=== PATIENT | male | born 1945 | race Caucasian/White ===

== ENCOUNTER 2019-01-13 11:06 | Inpatient (IN) | payer OTHER ==
[~2019-01-13] VITALS: Ht 180.3 cm; Wt 80.7 kg
--- NOTE | ~2019-01-13 | CN ---
PATIENT NAME:KRISTY BONNER MEDICAL RECORD: [id number] : 43 LOCATION:D.MS [place] ADMIT DATE: 01/13/19 ACCOUNT: [id number] CONSULTING PHYSICIAN: DORIS AVILES MD REFERRING PHYSICIAN: ASHLEY MOSES MD DATE OF CONSULTATION: 01/14/2019 Internal Medicine Consultation CONSULT REQUESTING PHYSICIAN: Ashley Moses MD REASON FOR CONSULTATION: Acute exacerbation of COPD, congestive heart failure. HISTORY OF PRESENT ILLNESS: Mr. Bonner is a 73-year-old very pleasant gentleman who has a history of COPD and congestive heart failure. The patient was sick for the last 3-4 days. He is congested. He is wheezing. He is coughing. The cough is productive of white color sputum production. He has shortness of breath and mild exertion. He was given amoxicillin 3 days ago, but the patient was not getting any better. REVIEW OF SYSTEMS: As in history of present illness. PAST MEDICAL HISTORY: 1. COPD. 2. Congestive heart failure with an EF of 20%. 3. History of coronary artery disease status post CABG. 4. History of CA prostate. ALLERGIES: HE IS ALLERGIC TO ALPRAZOLAM. MEDICATIONS: He is on Lasix, carvedilol, and spironolactone. FAMILY HISTORY: Significant for hypertension. PERSONAL AND SOCIAL HISTORY: The patient is an ex-smoker. He is a nondrinker. PHYSICAL EXAMINATION: GENERAL: Now, the patient is lying comfortably. He is not in acute distress. VITAL SIGNS: The blood pressure 111/63, pulse is 70, respirations 20, temperature 98.4, SpO2 is 98% on 2 liters nasal cannula. HEENT: Conjunctivae are pink. Sclerae are not icteric. NECK: Supple, no JVD. CHEST: The chest excursion minimal on both sides. There is prolonged expiration with wheezing. There is wheeze. There are basal crackles. HEART: Rhythm regular, normal sound, with a grade II/ systolic murmur. ABDOMEN: Soft, bowel sounds present. No hepatosplenomegaly. RECTAL: Deferred. EXTREMITIES: No cyanosis, no clubbing, no pedal edema. CENTRAL NERVOUS SYSTEM: The patient is awake and alert. There are no obvious cranial nerve abnormality. The gait was not tested. CHEST RADIOGRAPH: There is no acute cardiopulmonary process. OTHER LABORATORY DATA: CBC: WBC 5.1, hemoglobin 16.1, hematocrit 45.2, the platelet count 162. Chemistry: Sodium is 134, potassium is 4.3, BUN is 22, CONSULT REPORT [id number] KRISTY BONNER creatinine 1.2. ABG: The pH is 7.45, pCO2 is 32.3, the pO2 is 78. IMPRESSION: 1. Acute exacerbation of chronic obstructive pulmonary disease. 2. Acute hypoxic respiratory failure. 3. Tracheobronchitis. 4. Congestive heart failure with chronic systolic dysfunction, acute flareup. 5. Coronary artery disease status post coronary artery bypass grafting. 6. Hypertension. RECOMMENDATIONS: 1. Discontinue albuterol/ipratropium nebulizer. Start on Xopenex and ipratropium nebulizer. 2. Brovana-budesonide nebulizer. 3. Methylprednisolone IV. 4. IV Lasix. 5. Supplemental oxygen. 6. Singulair. 7. Tessalon Perles. Follow up labs and chest radiograph. The patient will need outpatient workup. Dr. Moses, thank you for involving me in the care of Mr. Bonner. TRANSINT:[id number] Voice Confirmation ID: [id number] DOCUMENT ID: [id number] DORIS AVILES MD CC: [id number] DICTATION DATE: 01/14/19 162 SENIOR SOLUTIONS ARCHITECT: 01/14/19 2334 ADM IN [place] [address] [place] [address]
[2019-01-13] MEDS ORDERED: LASIX40 MG PO (11:32)
[2019-01-13] MEDS ORDERED: COREG6.25 MG PO (11:32)
[2019-01-13] MEDS ORDERED: ALDACTONE25 MG PO (11:34)
[2019-01-13] MEDS ORDERED: POLY HIST FORTE (11:36)
[2019-01-13] MEDS ORDERED: CLAVULANATE (11:38)
[2019-01-13] MEDS ORDERED: AMOXICILLIN (11:38)
[2019-01-13 12:18] LABS: BASOPHILS 0.6 % (0-2); EOSINOPHILS 3.4 % (0-7); HEMATOCRIT 45.2 % (42.0-54.0); HEMOGLOBIN 16.1 g/dL (13.5-17.5); IMMATURE GRANULOCYTES 0.6 % (0-5); LYMPHOCYTES 26.4 % (15-50); MCH 34.8 pg (26.0-34.0); MCHC 35.6 g/dL (31.0-37.0); MCV 97.8 fL (80.0-100.0); MEAN PLATELET VOLUME 10.6 fL (7.4-10.4); MONOCYTES 14.2 % (2-11); NEUTROPHILS 54.8 % (40-80); PLATELET COUNT 162 10x3/uL (130-400); RBC 4.62 10x6/uL (4.20-6.10); RDW 12.7 % (11.5-14.5); WBC 5.1 10x3/uL (4.8-10.8)
[2019-01-13 12:29] LABS: APTT 29.7 SECONDS (22.8-39.4); INR 0.91 (0.85-1.17); PROTIME 11.8 SECONDS (11.6-15.0)
[2019-01-13 12:31] LABS: ALBUMIN 3.8 g/dL (3.4-5.0); ALKALINE PHOSPHATASE 109 U/L (46-116); ALT (SGPT) 13 U/L (10-68); BILIRUBIN - TOTAL 1.35 mg/dL (0.2-1.3); CALC OSMOLALITY 271 mosm/kg (275-300); CARBON DIOXIDE 29.5 mmol/L (21.0-32.0); CHLORIDE - SERUM 98 mmol/L (98-107); CREATININE - SERUM 1.3 mg/dL (0.6-1.3); GLUCOSE 108 mg/dL (74-106); POTASSIUM - SERUM 4.3 mmol/L (3.5-5.1); PROTEIN - SERUM 7.7 g/dL (6.4-8.2); SODIUM 135 mmol/L (136-145); UREA NITROGEN 15 mg/dL (7-18); eGFR NON AFRICAN AMERICAN 57 mL/min (90-120)
[2019-01-13 12:44] LABS: CKMB 2.1 U/L (0.0-3.6); CREATINE KINASE 167 UL (21-232); PRO BNP 3414 pg/mL (0-125); TROPONIN-I 0.024 ng/mL (0.000-0.060)
[2019-01-13 13:47] VITALS: BP 104/75
--- NOTE | 2019-01-13 18:28 | NUR ---
RECIEVED VIA WHEELCHAIR FROM ER, AAOX4, IV TO RIGHT FOREARM NS AT 50ML/HR. ON ROOM AIR, AMBULATORY, PROVIDED SPUTUM CULTURE COLLECTION TUBE AND INCENTIVE SPIROMETER, DEMONSTRATED PROPER USE OF IC AND VERBALIZES UNDERSTANDING OF SPUTUM CULTURE. DENIES ANY CURRENT NEEDS OR DISCOMFORTS, BED LOWERED AND LOCKED, CALL LIGHT WITHIN REACH. CPOC
--- NOTE | 2019-01-13 19:05 | NUR ---
BED LOW WITH SRX2 AND CALL LIGHT IN REACH...LUNGS WITH SOME CRACKLES THROUGHOUT STRUGGLING SLIGHTLYT WITH RESP AT 24 O2 AT 2L APPLIED PER ORDER AT THIS TIME....SKIN WARM AND DRY DENIES PAIN.
[2019-01-13 19:54] VITALS: BP 135/93
[2019-01-14 00:13] VITALS: BP 107/59
[2019-01-14 01:04] VITALS: BMI 24.8
[2019-01-14 05:37] VITALS: BP 124/62
[2019-01-14 05:43] LABS: BASOPHILS 0.3 % (0-2); EOSINOPHILS 0.3 % (0-7); HEMATOCRIT 40.7 % (42.0-54.0); HEMOGLOBIN 14.3 g/dL (13.5-17.5); IMMATURE GRANULOCYTES 0.5 % (0-5); LYMPHOCYTES 18.3 % (15-50); MCHC 35.1 g/dL (31.0-37.0); MCV 96.9 fL (80.0-100.0); MEAN PLATELET VOLUME 10.5 fL (7.4-10.4); MONOCYTES 3.8 % (2-11); NEUTROPHILS 76.8 % (40-80); RDW 12.4 % (11.5-14.5); WBC 3.9 10x3/uL (4.8-10.8)
[2019-01-14 06:05] LABS: ALBUMIN 3.2 g/dL (3.4-5.0); ANION GAP 16.6 mmol/L (8-16); BILIRUBIN - TOTAL 0.92 mg/dL (0.2-1.3); CALCIUM 8.2 mg/dL (8.5-10.1); CARBON DIOXIDE 22.7 mmol/L (21.0-32.0); CREATININE - SERUM 1.2 mg/dL (0.6-1.3); POTASSIUM - SERUM 4.3 mmol/L (3.5-5.1); PROTEIN - SERUM 6.8 g/dL (6.4-8.2)
[2019-01-14 06:06] LABS: PLATELET COUNT 125 10x3/uL (130-400)
--- NOTE | 2019-01-14 08:18 | NUR ---
PT ALERT X 4. EXPIRATORY WHEEZES TO LEFT LOBE, 2L O2 PER NC. TELEMETRY IN PLACE. IV TO RIGHT FOREARM, PATENT, DRESSING CLEAN DRY AND INTACT. SCD'S IN PLACE. BED LOW, CALL LIGHT IN REACH NO OTHER NEEDS AT THIS TIME.
[2019-01-14 09:57] VITALS: BP 155/85
[2019-01-14 12:47] VITALS: BP 123/61
[2019-01-14 18:14] VITALS: BP 116/71
[2019-01-14 21:18] VITALS: BP 94/49
[2019-01-15 00:48] VITALS: BP 101/59
[2019-01-15 04:50] VITALS: BP 121/56
[2019-01-15 05:26] LABS: BASOPHILS 0 % (0-2); EOSINOPHILS 0 % (0-7); HEMATOCRIT 35.1 % (42.0-54.0); HEMOGLOBIN 12.1 g/dL (13.5-17.5); IMMATURE GRANULOCYTES 0.2 % (0-5); LYMPHOCYTES 8.8 % (15-50); MCH 33.3 pg (26.0-34.0); MCHC 34.5 g/dL (31.0-37.0); MCV 96.7 fL (80.0-100.0); MEAN PLATELET VOLUME 10.4 fL (7.4-10.4); MONOCYTES 3.4 % (2-11); NEUTROPHILS 87.6 % (40-80); PLATELET COUNT 132 10x3/uL (130-400); RBC 3.63 10x6/uL (4.20-6.10); RDW 12.3 % (11.5-14.5)
[2019-01-15 05:36] LABS: WBC 9.1 10x3/uL (4.8-10.8)
[2019-01-15 05:43] LABS: ALBUMIN 3.2 g/dL (3.4-5.0); ANION GAP 12.4 mmol/L (8-16); BILIRUBIN - TOTAL 0.5 mg/dL (0.2-1.3); CALCIUM 8.8 mg/dL (8.5-10.1); CARBON DIOXIDE 27.1 mmol/L (21.0-32.0); CREATININE - SERUM 1.2 mg/dL (0.6-1.3); POTASSIUM - SERUM 4.5 mmol/L (3.5-5.1); PROTEIN - SERUM 6.5 g/dL (6.4-8.2)
--- NOTE | 2019-01-15 08:02 | NUR ---
PT ALERT X 4. INSPIRATORY AND EXPIRATORY WHEEZES TO ALL MARTINEZ, 2L O2 PER NC. TELEMETRY IN PLACE. IV TO RIGHT WRIST, SALINE LOCKED. HEADACHE NOW, RATING PAIN OF 8/10, WILL MONITOR. BED LOW, CALL LIGHT IN REACH. NO OTHER NEEDS AT THIS TIME.
[2019-01-15 09:45] VITALS: BP 120/62
[2019-01-15 13:24] VITALS: BP 115/65
[2019-01-15 18:08] VITALS: BP 114/61
--- NOTE | 2019-01-15 19:35 | NUR ---
PATIENT RESTING IN BED WITH NO S/S OF DISTRESS AND GUEST AT BEDSIDE. PATIENT DENIES NEEDS AT THIS TIME. BED IN LOWEST POSITION AND CALL LIGHT WITHIN REACH. ENCOURAGED THE PATIENT TO CALL IF HE HAS NEEDS. WILL CONTINUE TO MONITOR.
[2019-01-15 20:00] VITALS: BP 126/68
[2019-01-16] VITALS: BP 128/75
--- NOTE | 2019-01-16 02:13 | EC ---
PATIENT:KRISTY AGUILAR DATE OF SERVICE: 01/13/19 SEX: M MEDICAL RECORD: [id number] DATE OF : [birth year] LOCATION:D.MS [place] AGE OF PATIENT: 73 ADMISSION DATE: 01/13/19 REFERRING PHYSICIAN: INTERPRETING PHYSICIAN: GINGER MUHAMMAD MD ECHOCARDIOGRAM REPORT ECHO CHARGES 4 ECHO COMPLETE Date: 01/14/19 CLINICAL DIAGNOSIS: DYSPNEA ECHOCARDIOGRAPHIC MEASUREMENTS (adult normal given) AC root (d.<3.7cm) 3.2 cm LV Septum d (<1.2 cm> 0.9 cm Valve Excursion 1.8 cm LV Septum (systole) 1.1 cm Left Atria (s.<4.0cm> 3.3 cm LVPW d(<1.2cm) 1.8 cm RV (d.<2.3cm) 2.2 cm LVPW (sytole) 2.1 cm LV diastole(<5.6CM) 5.7 cm MV E-F(>70mm/sec) cm LV systole 4.6 cm LVOT Diameter 2.0 cm MV exc.(>10mm) cm Est.ejection fraction (50-75%) % DOPPLER: LVIT cm/sec A 101 cm/sec E 42 cm/sec LA cm/sec RVSP 23.0 mmHg LVOT 89 cm/sec AOP1/2T m/s Asc. Ao 99 cm/sec RVOT 103 cm/sec RA cm/sec PA 103 cm/sec AV Gradient Peak 3.9 mmHg AV Mean 1.7 mmHg AV Area 3.1 cm MV Gradient Peak 5.4 mmHg MV Mean 1.9 mmHg MV Area cm COMMENTS: Wardrobe Attendant: [facility] Tire Inspector: 3 Dr. Burleson TAPE# PACS Pericardial Effusion N DATE OF SERVICE: Adequate 2-D, color-flow and spectral Doppler, and M-mode. No LVH. LV internal dimensions are normal. LV is globally hypokinetic with reduced EF. Estimated EF is 20% to 25%. Aortic valve sclerosis without stenosis by Doppler interrogation. Left atrium is normal at 3.3 cm. Mitral valve shows no prolapse. Mild MR. Right-sided chambers are grossly normal. Trace TR. ECHOCARDIOGRAM REPORT [id number] KRISTY AGUILAR TRANSINT:[id number] Voice Confirmation ID: [id number] DOCUMENT ID: [id number] GINGER MUHAMMAD MD at 0213 CC: [id number] DICTATION DATE: 01/15/19 1330 ACADEMIC AFFAIRS COORDINATOR: 01/15/19 1414 ADM IN [place] [id number] [place] [id number]
[2019-01-16 03:00] VITALS: BP 131/70
[2019-01-16 06:15] LABS: BASOPHILS 0.1 % (0-2); EOSINOPHILS 0 % (0-7); HEMATOCRIT 39.8 % (42.0-54.0); HEMOGLOBIN 13.8 g/dL (13.5-17.5); IMMATURE GRANULOCYTES 0.4 % (0-5); LYMPHOCYTES 6.5 % (15-50); MCHC 34.7 g/dL (31.0-37.0); MEAN PLATELET VOLUME 10.4 fL (7.4-10.4); MONOCYTES 2.7 % (2-11); NEUTROPHILS 90.3 % (40-80); RBC 4.06 10x6/uL (4.20-6.10); RDW 12.8 % (11.5-14.5)
[2019-01-16 06:25] LABS: PLATELET COUNT 168 10x3/uL (130-400); WBC 11.7 10x3/uL (4.8-10.8)
[2019-01-16 06:46] LABS: ALBUMIN 3.7 g/dL (3.4-5.0); ANION GAP 17.4 mmol/L (8-16); BILIRUBIN - TOTAL 0.48 mg/dL (0.2-1.3); CALCIUM 8.8 mg/dL (8.5-10.1); CARBON DIOXIDE 27.6 mmol/L (21.0-32.0); CREATININE - SERUM 1.1 mg/dL (0.6-1.3); PROTEIN - SERUM 6.9 g/dL (6.4-8.2)
--- NOTE | 2019-01-16 07:25 | NUR ---
PT UP AD KALI, WALKING AROUND NURSES STATION. PT ALERT AND ORIENTED. PT ON ELECTROLYTE PROTOCOL. SCDS PRESENT. IV TO RIGHT FOREARM, SL. SITE PATENT WITHOUT REDNESS OR SWELLING. INSPIRATORY AND EXPIRATORY WHEEZES AUSCULTATED BILATERAL UPPER LOBES, EXCEPT DIMINISHED LUNG SOUNDS IN LLL. PT ON TELEMETRY 76 SR. NO C/O PAIN. NO S/S OF ACUTE DISTRESS NOTED. CALL LIGHT IN REACH. WILL CONTINUE TO MONITOR.
[2019-01-16 08:00] VITALS: BP 134/71
--- NOTE | 2019-01-16 10:47 | NUR ---
I have reviewed this patient and I concur with the Shift Assessment completed by the Licensed Practical Nurse today this shift.
[2019-01-16 12:00] VITALS: BP 120/62
[2019-01-16 17:00] VITALS: BP 120/67
--- NOTE | 2019-01-16 17:50 | NUR ---
PT RESTING IN BED, WATCHING TV. NO C/O PAIN. NO S/S OF ACUTE DISTRESS NOTED. PT DENIES ANYTHING FURTHER AT THIS TIME. CALL LIGHT IN REACH. WILL CONTINUE TO MONITOR.
[2019-01-16 21:16] VITALS: BP 113/55
--- NOTE | 2019-01-17 00:36 | NUR ---
REC'D AT SHIFT CHGE AMB. IN HALLWAY WITHOUT DIFFICULTY.DENIES ANY DISCOMFORT. WILL CONTINUE TO TO MONITOR FOR ANY CHGES AND FOLLOW CURRENT PLAN OF CARE.
[2019-01-17 01:16] VITALS: BP 124/60
--- NOTE | 2019-01-17 04:00 | NUR ---
I have reviewed this patient and I concur with the Shift Assessment completed by the Licensed Practical Nurse today this shift.
[2019-01-17 05:12] VITALS: BP 120/54
[2019-01-17 05:51] LABS: BASOPHILS 0.1 % (0-2); EOSINOPHILS 0 % (0-7); HEMATOCRIT 37.6 % (42.0-54.0); HEMOGLOBIN 12.8 g/dL (13.5-17.5); IMMATURE GRANULOCYTES 1.2 % (0-5); LYMPHOCYTES 14.3 % (15-50); MCH 33.8 pg (26.0-34.0); MCV 99.2 fL (80.0-100.0); MEAN PLATELET VOLUME 10.5 fL (7.4-10.4); NEUTROPHILS 74.4 % (40-80); PLATELET COUNT 157 10x3/uL (130-400); RBC 3.79 10x6/uL (4.20-6.10); RDW 12.7 % (11.5-14.5); WBC 10.6 10x3/uL (4.8-10.8)
[2019-01-17 06:31] LABS: ALBUMIN 3.1 g/dL (3.4-5.0); ANION GAP 12.3 mmol/L (8-16); BILIRUBIN - TOTAL 0.37 mg/dL (0.2-1.3); CALCIUM 8.5 mg/dL (8.5-10.1); CARBON DIOXIDE 29.1 mmol/L (21.0-32.0); CREATININE - SERUM 1.2 mg/dL (0.6-1.3); POTASSIUM - SERUM 3.4 mmol/L (3.5-5.1); PROTEIN - SERUM 6.4 g/dL (6.4-8.2)
--- NOTE | 2019-01-17 08:00 | NUR ---
PT ALERT X 4. INSPIRATORY AND EXPIRATORY WHEEZES TO ALL MARTINEZ. TELEMETRY IN PLACE. IV TO RIGHT WRIST, SALINE LOCKED. BED LOW, CALL LIGHT IN REACH, NO OTHER NEEDS AT THIS TIME.
[2019-01-17 09:38] VITALS: BP 118/90
[2019-01-17 14:22] VITALS: BP 148/85
--- NOTE | 2019-01-17 14:42 | MORECARE ---
CASE MANAGEMENT DISCHARGE SUMMARY PATIENT: KRISTY AGUILAR UNIT: [id number] ADM DATE: 01/13/19 AGE: 73 : 43 SEX: M ROOM/BED: D.2203 AUTHOR: VICKIEDOC PHYSICIAN: REFERRING PHYSICIAN: ASHLEY MOSES MD DATE OF SERVICE: 01/17/19 Discharge Plan Patient Name: KRISTY AGUILAR Facility: [facility]:[place] : 1945 Planned Disposition: Home Anticipated Discharge Date: Discharge Date: Expected LOS: Initial Reviewer: [email or web address] Initial Review Date: 01/13/2019 Generated: 01/17/19 3:42 pm Comments DCP- Discharge Planning Updated by [id number]: Krystina Romero on 01/17/19 1:[address] Patient Name: KRISTY AGUILAR Admission Status: ER Accout number: [id number] Admission Date: 01-13-2019 : 1945 Admission Diagnosis: Attending: ASHLEY MOSES Current LOS: 4 Anticipated DC Date: Planned Disposition: Home Primary Insurance: [employer] GOLD CHOICE PFFS Discharge Planning Comments: CM met with patient to complete initial dc planning assessment. CM educated patient on the CM role and verbal consent given by patient to complete assessment. Patient lives at home with where he is independent with his care. At discharge patient plans to return home and feels this is a safe discharge. CM discussed availability of home health, rehab services, and medical equipment. Patient has a walker at home ( that he does not use) home O2 that he uses at night ([employer]) and a cane. Patient denied known discharge needs at this time. If he needs a nebulizer when he is discharged he would like to use [facility] (his uses them ) IMM served and explained. ANIL for [facility] signed and placed in chart. CM will continue to follow and will assist as needed with dc plans/needs. Photogravure Press Operator: Krystina Romero DCPIA - Discharge Planning Initial Assessment Updated by [email or web address]: Krystina Romero on 01/17/19 2:36 pm * Is the patient Alert and Oriented? Yes * How many steps to enter\exit or inside your home? * PCP DEBBIE * Pharmacy [facility] [place] * Preadmission Environment Home with Family * ADLs Independent * Equipment Oxygen Walker * List name and contact numbers for known caregivers / representatives who currently or will assist patient after discharge: SHASHI SIMONS () [phone] * Verbal permission to speak to the caregivers and representatives has been obtained from the patient. Yes * Community resources currently utilized None * Additional services required to return to the preadmission environment? No * Can the patient safely return to the preadmission environment? Yes * Has this patient been hospitalized within the prior 30 days at any hospital? No Coverage Notice Reviewer: [id number] Michael Romero Notice Issued Date-Time: 01/17/2019 14:10 Notice Type: IM Discharge Notice Notice Delivered To: Patient Relationship to Patient: Senior Bioinformatics Scientist Name: Delivery Method: HAND - Hand Delivered Nirmala Days: Prior Verbal Notification: Recipient Understood Notice: Yes Recipient Signature: Yes Med Rec Note Co-signed by Attending: Coverage Notice Comment: Patient Name: KRISTY AGUILAR Page [phone] at 1442 All edits/amendments must be made on the electronic document DICTATION DATE: 01/17/19 1442 MEDICAL SUPPLY TECHNICIAN: SNEHA 01/17/19 1442 RPT#: [id number] DC DATE: STATUS: ADM IN [facility] [address] [place] [address] END OF REPORT
[2019-01-17 16:46] VITALS: BP 129/81
[2019-01-17 20:54] VITALS: BP 131/69
--- NOTE | 2019-01-17 23:27 | NUR ---
REC'D AT SHIFT CHGE.UP IN SHOWER.KAELYN, WELL. DENIES ANY COMPLAINTS OR DISCOMFORT AT PRESENT TIME WILL CONTINUE TO MONITOR FOR ANY CHGES AND FOLLOW CURRENT PLAN OF CARE
--- NOTE | 2019-01-18 01:53 | NUR ---
I have reviewed this patient and I concur with the Shift Assessment completed by the Licensed Practical Nurse today this shift.
[2019-01-18 05:01] VITALS: BP 110/64
[2019-01-18 06:39] LABS: BASOPHILS 0.1 % (0-2); EOSINOPHILS 0 % (0-7); HEMATOCRIT 38.8 % (42.0-54.0); HEMOGLOBIN 13.1 g/dL (13.5-17.5); LYMPHOCYTES 19.4 % (15-50); MCH 33.3 pg (26.0-34.0); MCHC 33.8 g/dL (31.0-37.0); MCV 98.7 fL (80.0-100.0); MEAN PLATELET VOLUME 10.4 fL (7.4-10.4); MONOCYTES 11.2 % (2-11); NEUTROPHILS 67.3 % (40-80); PLATELET COUNT 182 10x3/uL (130-400); RBC 3.93 10x6/uL (4.20-6.10); RDW 12.5 % (11.5-14.5); WBC 9.9 10x3/uL (4.8-10.8)
[2019-01-18 06:50] LABS: ALBUMIN 3.1 g/dL (3.4-5.0); BILIRUBIN - TOTAL 0.54 mg/dL (0.2-1.3); CALCIUM 8.4 mg/dL (8.5-10.1); CARBON DIOXIDE 30.7 mmol/L (21.0-32.0); CREATININE - SERUM 1.1 mg/dL (0.6-1.3); PROTEIN - SERUM 6.5 g/dL (6.4-8.2)
[2019-01-18 06:58] LABS: POTASSIUM - SERUM 3.7 mmol/L (3.5-5.1)
--- NOTE | 2019-01-18 07:43 | NUR ---
PT UP WALKING AROUND ROOM. RESP CAME IN TO WORK WITH PT AND DO FLUTTER TEACHING. NO S/S OF ACUTE DISTRESS. CL IN PLACE.
[2019-01-18 08:30] VITALS: BP 129/69
[2019-01-18 10:41] VITALS: Ht 180.3 cm; Wt 80.7 kg
--- NOTE | 2019-01-18 12:27 | NUR ---
SPOKE WITH PREMA FELICIANO ABOUT PT CONCERNA ABOUT HARDENED AREA IN PELVIC AREA. NO S/S OF ACUTE DISTRESS. CL IN PLACE.
[2019-01-18 13:03] VITALS: BP 116/61
[2019-01-18 14:45] VITALS: BP 125/72
--- NOTE | 2019-01-18 19:23 | NUR ---
PT RESTING IN BED TALKING ON PHONE. NO S/S OF ACUTE DISTRESS. CL IN PLACE.
[2019-01-18 20:10] VITALS: BP 98/47
--- NOTE | 2019-01-19 00:04 | NUR ---
REC'D. CHGE OF SHIFT.SITTING ON SIDE OF BED. DENIES ANY COMPLAINTS OR DISCOMFORT AT PRESENT TIME.'STATES GOING FOR A WALK IN A FEW MINUTES WILL CONTINUE TO MONITOR FOR ANY CHGES. AND FOLLOW CURRENT PLAN OF CARE.
--- NOTE | 2019-01-19 01:59 | NUR ---
I have reviewed this patient and I concur with the Shift Assessment completed by the Licensed Practical Nurse today this shift.
[2019-01-19 04:14] LABS: BASOPHILS 0.2 % (0-2); EOSINOPHILS 0.2 % (0-7); HEMATOCRIT 36.9 % (42.0-54.0); IMMATURE GRANULOCYTES 6.9 % (0-5); LYMPHOCYTES 23.2 % (15-50); MCH 34.2 pg (26.0-34.0); MCHC 35.2 g/dL (31.0-37.0); MCV 97.1 fL (80.0-100.0); MEAN PLATELET VOLUME 10.1 fL (7.4-10.4); MONOCYTES 7.7 % (2-11); NEUTROPHILS 61.8 % (40-80); PLATELET COUNT 169 10x3/uL (130-400); RDW 12.3 % (11.5-14.5); WBC 8.8 10x3/uL (4.8-10.8)
[2019-01-19 04:27] LABS: ANION GAP 10.7 mmol/L (8-16); CALCIUM 8.3 mg/dL (8.5-10.1); CARBON DIOXIDE 30.4 mmol/L (21.0-32.0); CREATININE - SERUM 1.1 mg/dL (0.6-1.3); POTASSIUM - SERUM 4.1 mmol/L (3.5-5.1)
[2019-01-19 04:45] VITALS: BP 99/64
--- NOTE | 2019-01-19 07:46 | NUR ---
AAOX4. SITTING UP IN BED. NO S/S OF ACUTE DISTRESS. CL IN PLACE.
[2019-01-19 09:23] VITALS: BP 134/73
[2019-01-19] MEDS ORDERED: ZITHROMAX250 MG PO (09:42)
[2019-01-19] MEDS ORDERED: SINGULAIR10 MG PO (09:43)
[2019-01-19] MEDS ORDERED: FLORAJEN3 CAPS460 MG PO (09:43)
[2019-01-19] MEDS ORDERED: MUCINEX600 MG PO (09:43)
[2019-01-19] MEDS ORDERED: TESSALON PERLE100 MG PO (09:43)
[2019-01-19] MEDS ORDERED: PREDNISONE10 MG PO (09:46)
[2019-01-19] MEDS ORDERED: OMNICEF300 MG PO (09:47)
--- NOTE | 2019-01-19 11:02 | MORECARE ---
CASE MANAGEMENT DISCHARGE SUMMARY PATIENT: KRISTY AGUILAR UNIT: [id number] ADM DATE: 01/13/19 AGE: 73 : 43 SEX: M ROOM/BED: D.2203 AUTHOR: АННА JOHNSTON PHYSICIAN: REFERRING PHYSICIAN: ASHLEY MOSES MD DATE OF SERVICE: 01/19/19 Discharge Plan Patient Name: KRISTY AGUILAR Facility: [facility]:[place] : 1945 Planned Disposition: Home Anticipated Discharge Date: Discharge Date: Expected LOS: Initial Reviewer: [email or web address] Initial Review Date: 01/13/2019 Generated: 01/19/19 12:02 pm Comments DCP- Discharge Planning Updated by [id number]: Krystina Romero on 01/19/19 10:[address] Patient Name: KRISTY AGUILAR Encounter No: [id number] : 1945 Primary Insurance: [employer] GOLD CHOICE PFFS Anticipated DC Date: Planned Disposition: Home External Planned Provider: : DCP follow-up note: Patient and family in agreement with discharge plan. No changes to plan. Case management will follow and assist as needed. Krystina Romero DCP- Discharge Planning Updated by [id number]: Krystina Romero on 01/17/19 1:[address] Patient Name: KRISTY AGUILAR Admission Status: ER Accout number: [id number] Admission Date: 01-13-2019 : 1945 Admission Diagnosis: Attending: ASHLEY MOSES Current LOS: 4 Anticipated DC Date: Planned Disposition: Home Primary Insurance: [employer] GOLD CHOICE PFFS Discharge Planning Comments: CM met with patient to complete initial dc planning assessment. CM educated patient on the CM role and verbal consent given by patient to complete assessment. Patient lives at home with where he is independent with his care. At discharge patient plans to return home and feels this is a safe discharge. CM discussed availability of home health, rehab services, and medical equipment. Patient has a walker at home ( that he does not use) home O2 that he uses at night ([employer]) and a cane. Patient denied known discharge needs at this time. If he needs a nebulizer when he is discharged he would like to use [facility] (his uses them ) IMM served and explained. ANIL for [facility] signed and placed in chart. CM will continue to follow and will assist as needed with dc plans/needs. Dry Cleaning Counter Clerk: Krystina Romero DCPIA - Discharge Planning Initial Assessment Updated by [email or web address]: Krystina Romero on 01/17/19 2:36 pm * Is the patient Alert and Oriented? Yes * How many steps to enter\exit or inside your home? * PCP DEBBIE * Pharmacy [facility] * Preadmission Environment Home with Family * ADLs Independent * Equipment Oxygen Walker * List name and contact numbers for known caregivers / representatives who currently or will assist patient after discharge: SHASHI SIMONS () [phone] * Verbal permission to speak to the caregivers and representatives has been obtained from the patient. Yes * Community resources currently utilized None * Additional services required to return to the preadmission environment? No * Can the patient safely return to the preadmission environment? Yes * Has this patient been hospitalized within the prior 30 days at any hospital? No Coverage Notice Reviewer: [id number] - Krystina Romero Notice Issued Date-Time: 01/17/2019 14:10 Notice Type: IM Discharge Notice Notice Delivered To: Patient Relationship to Patient: Machine Trimmer Name: Delivery Method: HAND - Hand Delivered Nirmala Days: Prior Verbal Notification: Recipient Understood Notice: Yes Recipient Signature: Yes Med Rec Note Co-signed by Attending: Coverage Notice Comment: Last DP export: 01/17/19 1:42 p Patient Name: KRISTY AGUILAR Page [phone] at 1102 All edits/amendments must be made on the electronic document DICTATION DATE: 01/19/19 1102 COMPLIANCE MGR: SNEHA 01/19/19 1102 RPT#: [id number] DC DATE: STATUS: ADM IN [facility] [address] [place] [address] END OF REPORT
--- NOTE | 2019-01-19 12:32 | NUR ---
LATE ENTRY 1210. DC INSTRCUTIONS AND EDUCATION GIVEN TO PT AND . DC IV WITH TIP INTACT. RETURNED TELE MONITOR. VOLUNTEER ASSISTED PT OFF FLOOR VIA WC. CARRIED ALL BELONGINGS DOWN. NO S/S OF ACUTE DISTRESS.
--- NOTE | 2019-01-25 12:23 | MORECARE ---
CASE MANAGEMENT DISCHARGE SUMMARY PATIENT: KRISTY AGUILAR UNIT: [id number] ADM DATE: 01/13/19 AGE: 73 : 44 SEX: M ROOM/BED: D.2203 AUTHOR: АННА JOHNSTON PHYSICIAN: REFERRING PHYSICIAN: ASHLEY MOSES MD DATE OF SERVICE: 01/25/19 Discharge Plan Patient Name: KRISTY AGUILAR Facility: [facility]:[place] : 1945 Planned Disposition: Home Anticipated Discharge Date: Discharge Date: 01/19/2019 Expected LOS: 0 Initial Reviewer: [email or web address] Initial Review Date: 01/13/2019 Generated: 01/25/19 1:23 pm Comments DCP- Discharge Planning Updated by [email or web address]: Krystina Romero on 01/19/19 10:[address] Patient Name: KRISTY AGUILAR Encounter No: [id number] : 1945 Primary Insurance: [employer] PFFS Anticipated DC Date: Planned Disposition: Home External Planned Provider: : DCP follow-up note: Patient and family in agreement with discharge plan. No changes to plan. Case management will follow and assist as needed. Krystina Romero DCP- Discharge Planning Updated by [id number]: Krystina Romero on 01/17/19 1:[address] Patient Name: KRISTY AGUILAR Admission Status: ER Accout number: [id number] Admission Date: 01-13-2019 : 1945 Admission Diagnosis: Attending: ASHLEY MOSES Current LOS: 4 Anticipated DC Date: Planned Disposition: Home Primary Insurance: [employer] GOLD CHOICE PFFS Discharge Planning Comments: CM met with patient to complete initial dc planning assessment. CM educated patient on the CM role and verbal consent given by patient to complete assessment. Patient lives at home with where he is independent with his care. At discharge patient plans to return home and feels this is a safe discharge. CM discussed availability of home health, rehab services, and medical equipment. Patient has a walker at home ( that he does not use) home O2 that he uses at night ([employer]) and a cane. Patient denied known discharge needs at this time. If he needs a nebulizer when he is discharged he would like to use [facility] (his uses them ) IMM served and explained. ANIL for [facility] signed and placed in chart. CM will continue to follow and will assist as needed with dc plans/needs. Theatre Director: Krystina Romero DCPIA - Discharge Planning Initial Assessment Updated by [id number]: Krystina Romero on 01/17/19 2:36 pm * Is the patient Alert and Oriented? Yes * How many steps to enter\exit or inside your home? * PCP DEBBIE * Pharmacy [facility] [place] * Preadmission Environment Home with Family * ADLs Independent * Equipment Oxygen Walker * List name and contact numbers for known caregivers / representatives who currently or will assist patient after discharge: SHASHI SIMONS () [phone] * Verbal permission to speak to the caregivers and representatives has been obtained from the patient. Yes * Community resources currently utilized None * Additional services required to return to the preadmission environment? No * Can the patient safely return to the preadmission environment? Yes * Has this patient been hospitalized within the prior 30 days at any hospital? No Coverage Notice Reviewer: [id number] - Krystina Romero Notice Issued Date-Time: 01/17/2019 14:10 Notice Type: IM Discharge Notice Notice Delivered To: Patient Relationship to Patient: Transportation Driver Name: Delivery Method: HAND - Hand Delivered Nirmala Days: Prior Verbal Notification: Recipient Understood Notice: Yes Recipient Signature: Yes Med Rec Note Co-signed by Attending: Coverage Notice Comment: Last DP export: 01/19/19 10:02 a Patient Name: KRISTY AGUILAR Page [phone] at 1223 All edits/amendments must be made on the electronic document DICTATION DATE: 01/25/19 1223 GANG PUNCH OPERATOR: DM 01/25/19 1223 RPT#: [id number] DC DATE:01/19/19 STATUS: DIS IN [facility] [address] [facility] [place] [address] END OF REPORT
== END 2019-01-19 12:10 | disposition home or self-care (01) | DRG 193 ==
LOC: D.ER 11:06 → D.EDHOLD 16:04 → D.MS 16:04
PROVIDERS: Emergency Medicine; Internal Medicine Nephrology; ADMIT Family Medicine; ATTEND Family Medicine
DX: J18.9 Pneumonia, unspecified organism (principal); I50.23 Acute on chronic systolic (congestive) heart failure; J96.01 Acute respiratory failure with hypoxia; I25.10 Atherosclerotic heart disease of native coronary artery without angina pectoris; I11.0 Hypertensive heart disease with heart failure

== ENCOUNTER → 2019-08-17 07:36 | Outpatient (CLI) | payer MEDICARE ==
[2019-01-18 10:41] VITALS: BMI 24.8
[~2019-08-17 07:36] MED LIST: ALDACTONE25 MG PO; AMOXICILLIN; CLAVULANATE; COREG6.25 MG PO; FLORAJEN3 CAPS460 MG PO; LASIX40 MG PO; MUCINEX600 MG PO; OMNICEF300 MG PO; POLY HIST FORTE; PREDNISONE10 MG PO; SINGULAIR10 MG PO; TESSALON PERLE100 MG PO; ZITHROMAX250 MG PO
== END | disposition home or self-care (01) ==
LOC: D.NM 07:36
PROVIDERS: ATTEND Family Medicine
DX: C61 Malignant neoplasm of prostate (principal)